=== PATIENT | female | born 1940 | race American Indian/Alaskan Native ===

== ENCOUNTER 2016-05-16 09:16 | Inpatient (IN) | payer OTHER, MEDICARE ==
--- NOTE | 2016-05-16 09:41 | C.PDOC ---
History Of Present Illness 76 yr old female presents to the ER for evaluation of pustule in right axillary area and in pubic region. Contrary to triage, patient does not have a fever. Patient denies fever, nausea, vomiting, diarrhea, dysuria, weakness or numbness. FSBS > 500 Time Seen by Provider: 05/16/16 09:37 Chief Complaint (Nursing): Fever History Per: Patient History/Exam Limitations: no limitations Onset/Duration Of Symptoms: Days Current Symptoms Are (Timing): Still Present Sick Contacts (Context): None Past Medical History Reviewed: Historical Data, Nursing Documentation, Vital Signs Vital Signs: Last Vital Signs Temp 98.4 F 05/16/16 14:00 Pulse 77 05/16/16 14:00 Resp 16 05/16/16 14:00 BP 162/70 H 05/16/16 14:00 Pulse Ox 99 05/16/16 14:37 - Medical History PMH: HTN Surgical History: No Surg Hx Family History: States: No Known Family Hx - Social History Hx Tobacco Use: No Hx Alcohol Use: No Hx Substance Use: No Review Of Systems Except As Marked, All Systems Reviewed And Found Negative. Constitutional: Negative for: Fever Gastrointestinal: Negative for: Nausea, Vomiting, Diarrhea Genitourinary: Negative for: Dysuria Skin: Positive for: Other (Pustule in right axillary area. Pustule in pubic region. ) Neurological: Negative for: Weakness, Numbness Physical Exam - Physical Exam Appears: Well, Non-toxic Skin: Warm, Dry, Other ((+) Pustules in rigth axiallary area and pubic regions, consistent with folliculitis.) Head: Atraumatic, Normacephalic Oral Mucosa: Moist Throat: Normal Chest: Symmetrical, No Tenderness Cardiovascular: Rhythm Regular, No Murmur Respiratory: Normal Breath Sounds, No Rales, No Rhonchi, No Wheezing Extremity: Normal ROM, No Swelling Neurological/Psych: Oriented x3, Normal Speech Gait: Steady ED Course And Treatment - Laboratory Results Result Diagrams: 05/16/16 11:00 05/16/16 11:00 Lab Interpretation: Abnormal ECG: Interpreted By Me ECG Rhythm: Sinus Rhythm ECG Interpretation: No Acute Changes Rate From EC O2 Sat by Pulse Oximetry: 99 Pulse Ox Interpretation: Normal - Radiology CXR: Interpreted by Me CXR Interpretation: Yes: No Acute Disease Progress Note: Treated with IVF NSS x 2 L, Insulin 5 Units IV. FSBS > 500. Treated with 5 Units regular insulin SQ Reassessment Condition: Unchanged - Physician Consult Information Physician Contacted: Que Lafleur Outcome Of Conversation: admit Disposition Discussed With : Que Lafleur Doctor Will See Patient In The: Hospital Counseled Patient/Family Regarding: Studies Performed, Diagnosis - Disposition Disposition: HOSPITALIZED Disposition Time: 11:40 Condition: STABLE - POA Present On Arrival: None - Clinical Impression Clinical Impression: Hyperglycemia, Diabetes mellitus, new onset - PA / CERTIFIED PROFESSIONAL CODER / Resident Statement MD/DO has reviewed & agrees with the documentation as recorded. - Scribe Statement The provider has reviewed the documentation as recorded by the Scribe Deborah Green All medical record entries made by the Cadyibe were at my direction and personally dictated by me. I have reviewed the chart and agree that the record accurately reflects my personal performance of the history, physical exam, medical decision making, and the department course for this patient. I have also personally directed, reviewed, and agree with the discharge instructions and disposition. Decision To Admit - Pt Status Changed To: Hospital Disposition Of: Inpatient - Admit Certification Admit to Inpatient:: After my assessment, the patient will require hospitalization for at least two midnights. This is because of the severity of symptoms shown, intensity of services needed, and/or the medical risk in this patient being treated as an outpatient. - InPatient: Physician Admission Certification:: Hyperglycemia. New onset DM - . Bed Request Type: Regular Admitting Physician: Que Lafleur Patient Diagnosis: Hyperglycemia, Diabetes mellitus, new onset
[2016-05-16] MEDS ORDERED: Sodium Chloride 0.9% 1,000 ML IV ONE ×2 (10:08→11:31)
[2016-05-16] MEDS ORDERED: Sodium Chloride 0.9% 1,000 ML ONE ×3 (10:56→17:01)
[2016-05-16 11:08] LABS: BASO # 0.1 K/uL (0.0-0.2); EOS # 0.1 K/uL (0.0-0.7); MEAN PLATELET VOLUME 9.9 fL (7.2-11.7); MONO # 0.7 K/uL (0.0-0.8); WHITE BLOOD COUNT 9.3 K/uL (4.8-10.8)
[2016-05-16 11:14] LABS: CHLORIDE 87 mmol/L (98-107)
[2016-05-16 11:15] LABS: POTASSIUM 5.6 mmol/L (3.6-5.2); SODIUM 128 mmol/L (132-148)
[2016-05-16 11:17] LABS: ALB/GLOB RATIO 0.9 (1.0-2.1); ALKALINE PHOSPHATASE 129 U/L (38-126); AST/SGOT 21 U/L (14-36); BILIRUBIN,TOTAL 0.6 mg/dL (0.2-1.3); BLOOD UREA NITROGEN 19 mg/dL (7-17); CARBON DIOXIDE 21 mmol/L (22-30); GFR AFRICAN-AMERICAN > 60; TOTAL PROTEIN 8.1 g/dL (6.3-8.3)
[2016-05-16 11:18] LABS: ALT/SGPT 18 U/L (9-52); CALCIUM 9.3 mg/dl (8.6-10.4)
[2016-05-16 11:27] LABS: BASO % 1.3 % (0.0-2.0); EOS % 1.2 % (0.0-4.0); HEMATOCRIT 34.5 % (34.0-47.0); LYMPH # 2.2 K/uL (1.0-4.3); LYMPH % 23.8 % (20.0-40.0); MEAN CORPUSCULAR HEMOGLOBIN 21.1 pg (27.0-31.0); MEAN CORPUSCULAR HGB CONC 30.5 g/dL (33.0-37.0); MONO % 7.6 % (0.0-10.0); NRBC % 0.1 % (0.0-2.0); RBC URINE 17 /hpf (0-3); RED CELL DISTRIBUTION WIDTH 21.8 % (11.5-14.5); URINE BACTERIA RARE (<OCC); URINE BILIRUBIN NEGATIVE (NEGATIVE); URINE BLOOD 1+ (NEGATIVE); URINE COLOR Straw (YELLOW); URINE GLUCOSE (UA) 3+ mg/dL (Normal); URINE KETONE TRACE mg/dL (NEGATIVE); URINE LEUKOCYTE ESTERASE 3+ Leu/uL (Negative); URINE PROTEIN NEGATIVE (NEGATIVE); URINE UROBILINOGEN NORMAL mg/dL (0.2-1.0); WBC URINE 5 /hpf (0-5)
[2016-05-16 11:30] LABS: GLUCOSE,RANDOM 858 mg/dL (65-105)
[2016-05-16] MEDS ORDERED: (Novolin R) Insulin Human Regular 100 units/ml vial IV ONE (11:30)
[2016-05-16] MEDS ORDERED: (Novolin R) Insulin Human Regular 100 units/ml vial ONE ×2 (11:48→14:12)
--- NOTE | 2016-05-16 12:30 | RAD ---
HISTORY: Cough COMPARISON: Comparison is made to the previous study dated 01/07/2011 TECHNIQUE: Chest PA and lateral FINDINGS: LUNGS: No evidence of focal infiltrate or consolidation in the lungs. PLEURA: No significant pleural effusion identified. No pneumothorax apparent. CARDIOVASCULAR: Normal. OSSEOUS STRUCTURES: No significant abnormalities. VISUALIZED UPPER ABDOMEN: Normal. OTHER FINDINGS: None. IMPRESSION: No active disease.
[2016-05-16] MEDS ORDERED: (Novolin R) Insulin Human Regular 100 units/ml vial SC ONE (13:51)
[2016-05-16] MEDS ORDERED: (Novolog) Insulin Aspart, Recombinant 100 u/ml 10 ml vial SC ONE (17:00)
[2016-05-16] MEDS ORDERED: (Novolog) Insulin Aspart, Recombinant 100 u/ml 10 ml vial ONE (17:01)
[2016-05-16] MEDS: Sodium Chloride 0.9% 1,000 ML IV SCH (17:10)
[2016-05-16] MEDS ORDERED: (Novolog) Insulin Aspart, Recombinant 100 u/ml 10 ml vial SC STA (17:13)
[2016-05-16] MEDS: Clindamycin 300 MG in Sodium Chloride 0.9% 50 ML IVPB SCH (17:32)
[2016-05-16 18:47] VITALS: RESP 20
[2016-05-16 21:36] LABS: CHLORIDE 103 mmol/L (98-107); POTASSIUM 3.7 mmol/L (3.6-5.2); SODIUM 139 mmol/L (132-148)
[2016-05-16 21:38] LABS: GFR AFRICAN-AMERICAN > 60
[2016-05-16 21:39] LABS: BLOOD UREA NITROGEN 13 mg/dL (7-17); CARBON DIOXIDE 23 mmol/L (22-30); GLUCOSE,RANDOM 279 mg/dL (65-105)
[2016-05-16 21:40] LABS: CALCIUM 9.1 mg/dl (8.6-10.4)
[2016-05-16] MEDS ORDERED: (Lantus) Insulin Glargine, Recombinant SC SCH (22:00)
[2016-05-16] MEDS: (Novolog) Insulin Aspart, Recombinant 100 u/ml 10 ml vial SC SCH (22:08)
[2016-05-17] MEDS: Clindamycin 300 MG in Sodium Chloride 0.9% 50 ML IVPB SCH ×2 (00:31→05:01)
[2016-05-17] MEDS: Sodium Chloride 0.9% 1,000 ML IV SCH (04:58)
[2016-05-17] MEDS: (Novolog) Insulin Aspart, Recombinant 100 u/ml 10 ml vial SC SCH ×4 (07:48→21:32)
[2016-05-17] MEDS ORDERED: Clindamycin 300 MG in Sodium Chloride 0.9% 50 ML IVPB SCH (12:00)
--- NOTE | 2016-05-17 12:15 | CP.PCM.CON ---
History of Present Illness - History of Present Illness History of Present Illness: 76 year old female patient was seen at bedside this morning after request for podiatry consultation concerning elongated, dystrophic toenails x10. Patient was resting comfortably in bed at the time of visit. AAO x3. Patient denies of any pain to bilateral lower extremities. Patient denies of any N/V/F/C or SOB today Past Patient History - Past Medical History & Family History Past Medical History?: Yes - Past Social History Smoking Status: Former Smoker - CARDIAC Hx Cardiac Disorders: Yes Hx Hypertension: Yes - PULMONARY Hx Respiratory Disorders: No - NEUROLOGICAL Hx Neurological Disorder: No - HEENT Hx HEENT Problems: No - RENAL Hx Chronic Kidney Disease: No - ENDOCRINE/METABOLIC Hx Endocrine Disorders: Yes Other/Comment: New onset DM - HEMATOLOGICAL/ONCOLOGICAL Hx Blood Disorders: No - INTEGUMENTARY Hx Dermatological Problems: No - MUSCULOSKELETAL/RHEUMATOLOGICAL Hx Musculoskeletal Disorders: No Hx Falls: No - GASTROINTESTINAL Hx Gastrointestinal Disorders: No - GENITOURINARY/GYNECOLOGICAL Hx Genitourinary Disorders: No - PSYCHIATRIC Hx Psychophysiologic Disorder: No Hx Substance Use: No - SURGICAL HISTORY Hx Surgeries: Yes Other/Comment: Ectopic 50 yr ago - ANESTHESIA Hx Anesthesia: Yes Hx Anesthesia Reactions: No Hx Malignant Hyperthermia: No Has any member of the family had a problem w/ anesthesia?: No Meds Allergies/Adverse Reactions: Allergies Allergy/AdvReac Type Severity Reaction Status Date / Time No Known Allergies Allergy Verified 05/16/16 09:22 - Medications Medications: Current Medications Clindamycin Phosphate 300 mg/ (Sodium Chloride) 52 mls @ 100 mls/hr IVPB Q6H [facility] Insulin Aspart (Novolog) 0 unit SC ACHS [facility] PRN Reason: Protocol Last Admin: 05/17/16 07:48 Dose: 6 unit Insulin Glargine (Lantus) 20 unit SC HS [facility] Last Admin: 05/16/16 22:07 Dose: 20 unit Losartan Potassium (Cozaar) 50 mg PO DAILY [facility] Last Admin: 05/17/16 09:50 Dose: 50 mg Metformin HCl (Glucophage) 850 mg PO TID [facility] Rosuvastatin Calcium (Crestor) 10 mg PO HS [facility] Last Admin: 05/16/16 22:07 Dose: 10 mg Physical Exam - Constitutional Appears: Well, Non-toxic, No Acute Distress - Extremities Exam Additional comments: Bilateral lower extremities exam DERM: No open wound noted. No erythema is noted. No sign of infection noted. Elongated, dystrophic, mycotic toenails noted to digits x10. VASC: Palpable DP noted bilaterally 2/4, non-palpable DP noted bilaterally. AUDIT ANALYST less than 3 seconds to all digits noted NEURO: Gross sensation intact ORTHO: No pain on palpation, no pain on passive ROM of B/L ankle, MTPJs. Manual muscle testing 5/5 bilaterally. - Neurological Exam Neurological exam: Alert, Oriented x3 - Psychiatric Exam Psychiatric exam: Normal Affect, Normal Mood - Skin Skin Exam: Normal Color, Warm Results - Vital Signs Recent Vital Signs: Last Vital Signs Temp 97.8 F 05/17/16 08:00 Pulse 89 05/17/16 08:00 Resp 20 05/17/16 08:00 BP 169/73 H 05/17/16 08:00 Pulse Ox 95 05/17/16 08:00 - Labs Result Diagrams: 05/16/16 11:00 05/16/16 21:19 Labs: Laboratory Results - last 24 hr 05/16/16 05/16/16 05/16/16 13:29 15:20 18:26 Sodium Potassium Chloride Carbon Dioxide Anion Gap BUN Creatinine Est GFR ( Amer) Est GFR (Non-Af Amer) POC Glucose (mg/dL) > 500 H* > 500 H* 326 H Random Glucose Calcium 05/16/16 05/16/16 05/17/16 21:18 21:19 07:33 Sodium 139 Potassium 3.7 Chloride 103 Carbon Dioxide 23 Anion Gap 16 BUN 13 Creatinine 0.8 Est GFR ( Amer) > 60 Est GFR (Non-Af Amer) > 60 POC Glucose (mg/dL) 298 H 419 H* Random Glucose 279 H Calcium 9.1 05/17/16 12:00 Sodium Potassium Chloride Carbon Dioxide Anion Gap BUN Creatinine Est GFR ( Amer) Est GFR (Non-Af Amer) POC Glucose (mg/dL) 474 H* Random Glucose Calcium Assessment & Plan - Assessment and Plan (Free Text) Assessment: 76 year old diabetic female patient presents with elongated, dystrophic, mycotic toenails x10 Plan: Patient was seen, evaluated and treated with all questions and concerns addressed labs and vitals reviewed discussed in detail with Dr. Sharp Elongated, dystrophic toenails were sharply cut with a large nail nipper up to level of normal length without any incident x10 Patient is stable from podiatry standpoint Podiatry signing off Please re-consult podiatry if any other lower extremity problems occur, thank you
[2016-05-17] MEDS ORDERED: (Novolog Mix 70/30) Insulin Aspart/Insulin Aspar 100 units/ml SC SCH (16:30)
[2016-05-17 19:39] LABS: HEMATOCRIT 31.7 % (34.0-47.0); MEAN CELL VOLUME 67.5 fL (81.0-99.0); MEAN CORPUSCULAR HEMOGLOBIN 20.9 pg (27.0-31.0); MEAN CORPUSCULAR HGB CONC 30.9 g/dL (33.0-37.0); MEAN PLATELET VOLUME 9.4 fL (7.2-11.7); RED CELL DISTRIBUTION WIDTH 21.6 % (11.5-14.5); WHITE BLOOD COUNT 10.4 K/uL (4.8-10.8)
[2016-05-17 19:48] LABS: CHLORIDE 98 mmol/L (98-107); POTASSIUM 4.1 mmol/L (3.6-5.2); SODIUM 133 mmol/L (132-148)
[2016-05-17 19:51] LABS: BLOOD UREA NITROGEN 15 mg/dL (7-17); CARBON DIOXIDE 20 mmol/L (22-30); GFR AFRICAN-AMERICAN > 60; GLUCOSE,RANDOM 337 mg/dL (65-105)
[2016-05-17 19:52] LABS: CALCIUM 8.6 mg/dl (8.6-10.4)
[2016-05-17] MEDS ORDERED: (Novolog) Insulin Aspart, Recombinant 100 u/ml 10 ml vial SC STA (21:43)
--- NOTE | 2016-05-17 22:56 | CP.PCM.HP ---
History of Present Illness - History of Present Illness History of Present Illness: Cheif complain: Wounds in pelvic area HPI: 76 yr old AA female with PMH of HTN ,who is non complaint with her diet, medication and follow up presents to the ER for evaluation of pustule in right axillary area and in pubic region. Contrary to triage, patient does not have a fever. Patient denies fever,chills, nausea, vomiting, diarrhea, dysuria, weakness or numbness.PT c/o gen weakness, tiredness, wt loss, polyuria, polydipsia. FSBS > 500 Present on Admission - Present on Admission Any Indicators Present on Admission: No Review of Systems - Review of Systems Systems not reviewed;Unavailable: Acuity of Condition - Constitutional Constitutional: Fatigue, Fever, Headache, Lethargy, Weight Loss, Weakness - EENT Eyes: absent: As Per HPI, Blind Spots, Blurred Vision, Change in Vision, Decreased Night Vision, Diplopia, Discharge, Dry Eye, Exophthalmos, Floaters, Irritation, Itchy Eyes, Loss of Peripheral Vision, Pain, Photophobia, Requires Corrective Lenses, Sees Flashes, Spots in Vision, Tunnel Vision, Other Visual Disturbances, Loss of Vision, Other Ears: absent: As Per HPI, Decreased Hearing, Ear Discharge, Ear Pain, Tinnitus, Abnormal Hearing, Disequilibrium, Dizziness, Other Nose/Mouth/Throat: absent: As Per HPI, Epistaxis, Nasal Congestion, Nasal Discharge, Nasal Obstruction, Nasal Trauma, Nose Pain, Post Nasal Drip, Sinus Pain, Sinus Pressure, Bleeding Gums, Change in Voice, Dental Pain, Dry Mouth, Dysphagia, Halitosis, Hoarsness, Lip Swelling, Mouth Lesions, Mouth Pain, Odynophagia, Sore Throat, Throat Swelling, Tongue Swelling, Facial Pain, Neck Pain, Neck Mass, Other - Cardiovascular Cardiovascular: absent: As Per HPI, Acrocyanosis, Chest Pain, Chest Pain at Rest , Chest Pain with Activity, Claudication, Diaphoresis, Dyspnea, Dyspnea on Exertion, Edema, Irregular Heart Rhythm, Pain Radiating to Arm/Neck/Jaw, Leg Edema, Leg Ulcers, Lightheadedness, Orthopnea, Palpitations, Paroxysmal Nocturnal Dyspnea, Pedal Edema, Radiating Pain, Rapid Heart Rate, Slow Heart Rate, Syncope, Other - Respiratory Respiratory: absent: As Per HPI, Cough, Dyspnea, Hemoptysis, Dyspnea on Exertion , Wheezing, Snoring, Stridor, Pain on Inspiration, Chest Congestion, Excessive Mucous Production, Change in Mucous Color, Pain with Coughing, Other - Genitourinary Genitourinary: Urinary Frequency. absent: As Per HPI, Change in Urinary Stream , Difficulty Urinating, Dysuria, Flank Pain, Hematuria, Pyuria, Nocturia, Urinary Incontinence, Urinary Hesitance, Urinary Urgency, Voiding Freq/Small Amts, Freq UTI, Hx Renal/Bladder Calculi, Hx /Renal Surgery, Bladder Distension, Other - Musculoskeletal Musculoskeletal: Back Pain, Muscle Weakness, Myalgias, Numbness, Tingling - Integumentary Integumentary: Changing Lesions, Dry Skin, Furuncle, Pruritus, Rash, Skin Ulcer - Neurological Neurological: absent: As Per HPI, Abnormal Gait, Abnormal Hearing, Abnormal Movements, Abnormal Speech, Behavioral Changes, Burning Sensations, Confusion, Convulsions, Disequilibrium, Dizziness, Numbness, Focal Weakness, Frequent Falls , Headaches, Lack of Coordination, Loss of Vision, Memory Loss, Paresthesias, Radicular Pain, Restless Legs, Sensory Deficit, Syncope, Tingling, Tremor, Vertigo, Weakness, Other Visual Disturbances, Other - Psychiatric Psychiatric: absent: As Per HPI, Abnormal Sleep Pattern, Anhedonia, Anxiety, Auditory Hallucinations, Behavioral Changes, Change in Appetite, Change in Libido, Confusion, Depression, Difficulty Concentrating, Hallucinations, Homicidal Ideation, Hopelessness, Irritability, Memory Loss, Mood Swings, Panic Attacks, Paranoia, Suicidal Ideation, Visual Hallucinations, Tactile Hallucinations, Other - Endocrine Endocrine: Fatigue, Polydipsia, Polyuria. absent: As Per HPI, Change in Body Appearance, Change in Libido, Cold Intolorance, Deepening of Voice, Excessive Sweating, Flushing, Heat Intolorance, Increase in Ring/Shoe/Hat Size, Palpitations, Polyphagia, Other Past Patient History - Past Medical History & Family History Past Medical History?: Yes - Past Social History Smoking Status: Former Smoker - CARDIAC Hx Cardiac Disorders: Yes Hx Hypertension: Yes - PULMONARY Hx Respiratory Disorders: No - NEUROLOGICAL Hx Neurological Disorder: No - HEENT Hx HEENT Problems: No - RENAL Hx Chronic Kidney Disease: No - ENDOCRINE/METABOLIC Hx Endocrine Disorders: Yes Other/Comment: New onset DM - HEMATOLOGICAL/ONCOLOGICAL Hx Blood Disorders: No - INTEGUMENTARY Hx Dermatological Problems: No - MUSCULOSKELETAL/RHEUMATOLOGICAL Hx Musculoskeletal Disorders: No Hx Falls: No - GASTROINTESTINAL Hx Gastrointestinal Disorders: No - GENITOURINARY/GYNECOLOGICAL Hx Genitourinary Disorders: No - PSYCHIATRIC Hx Psychophysiologic Disorder: No Hx Substance Use: No - SURGICAL HISTORY Hx Surgeries: Yes Other/Comment: Ectopic 50 yr ago - ANESTHESIA Hx Anesthesia: Yes Hx Anesthesia Reactions: No Hx Malignant Hyperthermia: No Has any member of the family had a problem w/ anesthesia?: No Meds Home Medications: Home Medication List Medication Instructions Recorded Confirmed Type Docusate [Colace] 100 mg PO BID #60 cap 05/19/16 Rx Ferrous Sulfate [Feosol] 325 mg PO BID #60 tab 05/19/16 Rx Insulin Glargine, Recombina 20 unit SC HS #5 unit 05/19/16 Rx [Lantus] Losartan [Cozaar] 50 mg PO DAILY #30 tab 05/19/16 Rx Rosuvastatin Calcium [Crestor] 10 mg PO HS #30 tab 05/19/16 Rx metFORMIN [glucOPHAGE] 850 mg PO TID #90 tab 05/19/16 Rx Allergies/Adverse Reactions: Allergies Allergy/AdvReac Type Severity Reaction Status Date / Time No Known Allergies Allergy Verified 05/16/16 09:22 Physical Exam - Constitutional Appears: No Acute Distress - Eye Exam Pupil Exam: NORMAL ACCOMODATION, PERRL - ENT Exam ENT Exam: Mucous Membranes Dry - Neck Exam Neck exam: Positive for: Normal Inspection - Respiratory Exam Respiratory Exam: Clear to Auscultation Bilateral, NORMAL BREATHING PATTERN - Cardiovascular Exam Cardiovascular Exam: REGULAR RHYTHM Additional comments: 3x 2 cm boil in right ant chest wall which is tender, warm - GI/Abdominal Exam GI & Abdominal Exam: Normal Bowel Sounds, Soft. absent: Tenderness - Neurological Exam Neurological exam: Alert, CN II-XII Intact, Normal Gait, Oriented x3, Reflexes Normal - Psychiatric Exam Psychiatric exam: Normal Affect, Normal Mood - Skin Skin Exam: Rash, Vesicles Additional comments: multiple carbuncles in pubic area with pustules Results - Vital Signs Recent Vital Signs: Last Vital Signs Temp 98.2 F 05/17/16 16:00 Pulse 90 05/17/16 16:00 Resp 20 05/17/16 16:00 BP 149/84 05/17/16 16:00 Pulse Ox 98 05/17/16 16:00 - Labs Result Diagrams: 05/18/16 07:31 05/19/16 08:18 Labs: Laboratory Results - last 24 hr 05/17/16 05/17/16 05/17/16 07:33 12:00 16:07 WBC RBC Hgb Hct MCV MCH MCHC RDW Plt Count MPV Sodium Potassium Chloride Carbon Dioxide Anion Gap BUN Creatinine Est GFR ( Amer) Est GFR (Non-Af Amer) POC Glucose (mg/dL) 419 H* 474 H* 448 H* Random Glucose Calcium 05/17/16 05/17/16 19:37 21:16 WBC 10.4 RBC 4.70 Hgb 9.8 L Hct 31.7 L MCV 67.5 L MCH 20.9 L MCHC 30.9 L RDW 21.6 H Plt Count 385 MPV 9.4 Sodium 133 Potassium 4.1 Chloride 98 Carbon Dioxide 20 L Anion Gap 19 BUN 15 Creatinine 0.9 Est GFR ( Amer) > 60 Est GFR (Non-Af Amer) > 60 POC Glucose (mg/dL) 302 H Random Glucose 337 H Calcium 8.6 Assessment & Plan (1) Hyperglycemia Status: Acute (2) Diabetes mellitus, new onset Status: Acute (3) Carbuncle Status: Acute (4) HTN (hypertension) Status: Acute (5) Dehydration Status: Acute
--- NOTE | 2016-05-17 23:40 | CP.PCM.PN ---
Subjective - Date & Time of Evaluation Date of Evaluation: 05/17/16 Time of Evaluation: 09:51 - Subjective Subjective: Pt seen & evaluated, no IV line, reamins hyperglycemic, HCO3 is up, anion gap is normal, afebrile Objective - Vital Signs/Intake and Output Vital Signs (last 24 hours): Temp Pulse Resp BP Pulse Ox 98.2 F 90 20 149/84 98 05/17/16 16:00 05/17/16 16:00 05/17/16 16:00 05/17/16 16:00 05/17/16 16:00 Intake and Output: 05/17/16 05/18/16 18:59 06:59 Intake Total 450 Balance 450 - Medications Medications: Current Medications Clindamycin HCl (Cleocin) 300 mg PO Q6 [facility] Last Admin: 05/17/16 17:30 Dose: 300 mg Insulin Aspart (Novolog) 0 unit SC ACHS [facility] PRN Reason: Protocol Last Admin: 05/17/16 21:32 Dose: 4 unit Insulin Aspart (Novolog Mix 70/30 (70/30 Units/Ml)) 15 units SC ACBD [facility] Last Admin: 05/17/16 17:30 Dose: 15 units Losartan Potassium (Cozaar) 50 mg PO DAILY [facility] Last Admin: 05/17/16 09:50 Dose: 50 mg Metformin HCl (Glucophage) 850 mg PO TID [facility] Last Admin: 05/17/16 17:30 Dose: 850 mg Rosuvastatin Calcium (Crestor) 10 mg PO HS [facility] Last Admin: 05/17/16 21:32 Dose: 10 mg - Labs Labs: 05/17/16 19:37 05/17/16 19:37 - Constitutional Appears: No Acute Distress - Head Exam Head Exam: ATRAUMATIC, NORMAL INSPECTION, NORMOCEPHALIC - Eye Exam Eye Exam: EOMI, Normal appearance, PERRL Pupil Exam: NORMAL ACCOMODATION, PERRL - ENT Exam ENT Exam: Mucous Membranes Moist, Normal Exam - Respiratory Exam Respiratory Exam: Clear to Ausculation Bilateral, Wheezes - Cardiovascular Exam Cardiovascular Exam: REGULAR RHYTHM, +S1, +S2. absent: Murmur - GI/Abdominal Exam GI & Abdominal Exam: Soft, Normal Bowel Sounds. absent: Tenderness - Neurological Exam Neurological Exam: Alert, Awake, CN II-XII Intact, Normal Gait, Oriented x3 - Psychiatric Exam Psychiatric exam: Normal Affect, Normal Mood Assessment and Plan (1) Hyperglycemia Status: Acute (2) Diabetes mellitus, new onset Status: Acute (3) Carbuncle Status: Acute (4) HTN (hypertension) Status: Acute (5) Dehydration Status: Acute
[2016-05-18 07:46] LABS: HEMATOCRIT 31.7 % (34.0-47.0); MEAN CELL VOLUME 68.1 fL (81.0-99.0); MEAN CORPUSCULAR HEMOGLOBIN 20.9 pg (27.0-31.0); MEAN CORPUSCULAR HGB CONC 30.7 g/dL (33.0-37.0); MEAN PLATELET VOLUME 9.4 fL (7.2-11.7); RED CELL DISTRIBUTION WIDTH 21.8 % (11.5-14.5); WHITE BLOOD COUNT 7.8 K/uL (4.8-10.8)
[2016-05-18 07:54] LABS: CHLORIDE 99 mmol/L (98-107); POTASSIUM 3.9 mmol/L (3.6-5.2); SODIUM 133 mmol/L (132-148)
[2016-05-18 07:57] LABS: BLOOD UREA NITROGEN 13 mg/dL (7-17); CARBON DIOXIDE 21 mmol/L (22-30); GFR AFRICAN-AMERICAN > 60
[2016-05-18 07:58] LABS: CALCIUM 8.4 mg/dl (8.6-10.4); GLUCOSE,RANDOM 266 mg/dL (65-105)
[2016-05-18] MEDS: (Novolog Mix 70/30) Insulin Aspart/Insulin Aspar 100 units/ml SC SCH ×2 (08:38→16:34)
[2016-05-18] MEDS: (Novolog) Insulin Aspart, Recombinant 100 u/ml 10 ml vial SC SCH ×4 (08:41→21:49)
--- NOTE | 2016-05-18 23:54 | CP.PCM.PN ---
Subjective - Date & Time of Evaluation Date of Evaluation: 05/18/16 Time of Evaluation: 10:06 - Subjective Subjective: Pt is seen & examined, is improving, blood sugar is down, on antibiotics for celulitis and discharge from suprapubic area Objective - Vital Signs/Intake and Output Vital Signs (last 24 hours): Temp Pulse Resp BP Pulse Ox 97.6 F 89 20 154/92 H 96 05/18/16 16:33 05/18/16 16:33 05/18/16 16:33 05/18/16 16:33 05/18/16 16:33 Intake and Output: 05/18/16 05/19/16 18:59 06:59 Intake Total 500 Balance 500 - Medications Medications: Current Medications Clindamycin HCl (Cleocin) 300 mg PO Q6 [facility] Last Admin: 05/18/16 18:16 Dose: 300 mg Heparin Sodium (Porcine) (Heparin) 5,000 units SC Q12 [facility] Last Admin: 05/18/16 21:29 Dose: 5,000 units Insulin Aspart (Novolog Mix 70/30 (70/30 Units/Ml)) 20 units SC ACBD [facility] Last Admin: 05/18/16 16:34 Dose: 20 units Insulin Aspart (Novolog) 0 unit SC ACHS [facility] PRN Reason: Protocol Last Admin: 05/18/16 21:49 Dose: Not Given Losartan Potassium (Cozaar) 50 mg PO DAILY [facility] Last Admin: 05/18/16 10:45 Dose: 50 mg Metformin HCl (Glucophage) 850 mg PO TID [facility] Last Admin: 05/18/16 18:17 Dose: 850 mg Rosuvastatin Calcium (Crestor) 10 mg PO HS [facility] Last Admin: 05/18/16 21:28 Dose: 10 mg - Labs Labs: 05/18/16 07:31 05/18/16 07:31 - Constitutional Appears: No Acute Distress - Head Exam Head Exam: ATRAUMATIC, NORMAL INSPECTION, NORMOCEPHALIC - Eye Exam Eye Exam: EOMI, Normal appearance, PERRL Pupil Exam: NORMAL ACCOMODATION, PERRL - ENT Exam ENT Exam: Mucous Membranes Moist, Normal Exam - Respiratory Exam Respiratory Exam: Clear to Ausculation Bilateral, NORMAL BREATHING PATTERN - Cardiovascular Exam Cardiovascular Exam: REGULAR RHYTHM, +S1, +S2. absent: Murmur - GI/Abdominal Exam GI & Abdominal Exam: Soft, Normal Bowel Sounds. absent: Tenderness - Neurological Exam Neurological Exam: Alert, Awake, CN II-XII Intact, Normal Gait, Oriented x3 - Skin Skin Exam: Erythema, Rash, Vesicles Assessment and Plan (1) Hyperglycemia Status: Acute (2) Diabetes mellitus, new onset Status: Acute (3) Carbuncle Status: Acute (4) HTN (hypertension) Status: Acute (5) Dehydration Status: Acute
[2016-05-19] MEDS: (Novolog Mix 70/30) Insulin Aspart/Insulin Aspar 100 units/ml SC SCH ×2 (08:00→17:15)
[2016-05-19] MEDS: (Novolog) Insulin Aspart, Recombinant 100 u/ml 10 ml vial SC SCH ×4 (08:00→21:21)
[2016-05-19 08:43] LABS: CHLORIDE 97 mmol/L (98-107); POTASSIUM 4.4 mmol/L (3.6-5.2); SODIUM 133 mmol/L (132-148)
[2016-05-19 08:46] LABS: CARBON DIOXIDE 23 mmol/L (22-30); GFR AFRICAN-AMERICAN > 60
[2016-05-19 08:47] LABS: BLOOD UREA NITROGEN 14 mg/dL (7-17); CALCIUM 8.5 mg/dl (8.6-10.4); GLUCOSE,RANDOM 302 mg/dL (65-105)
[2016-05-20 00:24] VITALS: O2SAT 97
--- NOTE | 2016-05-20 01:21 | CP.PCM.PN ---
Subjective - Date & Time of Evaluation Date of Evaluation: 05/19/16 Time of Evaluation: 10:10 - Subjective Subjective: Pt seen and evaluated is imrpoving, blood sugars are much steadier now, she has been taught ACCU check Objective - Vital Signs/Intake and Output Vital Signs (last 24 hours): Temp Pulse Resp BP Pulse Ox 98 F 76 20 159/84 H 97 05/20/16 00:18 05/20/16 00:18 05/20/16 00:18 05/20/16 00:18 05/20/16 00:18 Intake and Output: 05/19/16 05/20/16 18:59 06:59 Intake Total 480 Balance 480 - Medications Medications: Current Medications Clindamycin HCl (Cleocin) 300 mg PO Q6 [facility] Last Admin: 05/20/16 00:24 Dose: 300 mg Ferrous Sulfate (Feosol) 325 mg PO TID [facility] Heparin Sodium (Porcine) (Heparin) 5,000 units SC Q12 [facility] Last Admin: 05/19/16 21:20 Dose: 5,000 units Insulin Aspart (Novolog Mix 70/30 (70/30 Units/Ml)) 20 units SC ACBD [facility] Last Admin: 05/19/16 17:15 Dose: 20 units Insulin Aspart (Novolog) 0 unit SC ACHS [facility] PRN Reason: Protocol Last Admin: 05/19/16 21:21 Dose: Not Given Losartan Potassium (Cozaar) 50 mg PO DAILY [facility] Last Admin: 05/19/16 11:03 Dose: 50 mg Metformin HCl (Glucophage) 850 mg PO TID [facility] Last Admin: 05/19/16 17:14 Dose: 850 mg Rosuvastatin Calcium (Crestor) 10 mg PO HS [facility] Last Admin: 05/19/16 21:19 Dose: 10 mg - Labs Labs: 05/18/16 07:31 05/19/16 08:18 - Constitutional Appears: No Acute Distress - Head Exam Head Exam: ATRAUMATIC, NORMAL INSPECTION, NORMOCEPHALIC - Eye Exam Eye Exam: EOMI, Normal appearance, PERRL Pupil Exam: NORMAL ACCOMODATION, PERRL - ENT Exam ENT Exam: Mucous Membranes Moist, Normal Exam - Neck Exam Neck Exam: Full ROM, Normal Inspection. absent: Lymphadenopathy - Respiratory Exam Respiratory Exam: Clear to Ausculation Bilateral, NORMAL BREATHING PATTERN - Cardiovascular Exam Cardiovascular Exam: REGULAR RHYTHM, +S1, +S2. absent: Murmur Assessment and Plan (1) Hyperglycemia Status: Acute (2) Diabetes mellitus, new onset Status: Acute (3) Carbuncle Status: Acute (4) HTN (hypertension) Status: Acute (5) Dehydration Status: Acute
[2016-05-20] MEDS: (Novolog) Insulin Aspart, Recombinant 100 u/ml 10 ml vial SC SCH ×2 (07:30→14:21)
[2016-05-20] MEDS: (Novolog Mix 70/30) Insulin Aspart/Insulin Aspar 100 units/ml SC SCH (08:00)
[2016-05-20 08:47] VITALS: BP 135/81; PULSE 78; TEMP 98.1
--- NOTE | 2016-05-20 14:57 | CP.PCM.PN ---
Subjective - Date & Time of Evaluation Date of Evaluation: 05/20/16 Time of Evaluation: 11:30 - Subjective Subjective: Pt seen an d examined today, states feels better, denies any complaints BS - stable Objective - Vital Signs/Intake and Output Vital Signs (last 24 hours): Temp Pulse Resp BP Pulse Ox 98.1 F 78 20 135/81 97 05/20/16 08:00 05/20/16 08:00 05/20/16 08:00 05/20/16 08:00 05/20/16 08:00 Intake and Output: 05/20/16 05/20/16 06:59 18:59 Intake Total 500 Balance 500 - Medications Medications: Current Medications Clindamycin HCl (Cleocin) 300 mg PO Q6 [facility] Last Admin: 05/20/16 11:06 Dose: 300 mg Ferrous Sulfate (Feosol) 325 mg PO TID [facility] Last Admin: 05/20/16 14:21 Dose: 325 mg Heparin Sodium (Porcine) (Heparin) 5,000 units SC Q12 [facility] Last Admin: 05/20/16 10:55 Dose: 5,000 units Insulin Aspart (Novolog Mix 70/30 (70/30 Units/Ml)) 20 units SC ACBD [facility] Last Admin: 05/20/16 08:00 Dose: 20 units Insulin Aspart (Novolog) 0 unit SC ACHS [facility] PRN Reason: Protocol Last Admin: 05/20/16 14:21 Dose: 3 unit Losartan Potassium (Cozaar) 50 mg PO DAILY [facility] Last Admin: 05/20/16 10:56 Dose: 50 mg Metformin HCl (Glucophage) 850 mg PO TID [facility] Last Admin: 05/20/16 14:21 Dose: 850 mg Rosuvastatin Calcium (Crestor) 10 mg PO HS [facility] Last Admin: 05/19/16 21:19 Dose: 10 mg - Labs Labs: 05/18/16 07:31 05/19/16 08:18 Assessment and Plan - Assessment and Plan (Free Text) Assessment: A/P 76 yr old female admitted for hyperglycemia- new onset of DM / hypertension Bs- controlled with current regimen Pt has been taught how to administer insulin at home D/W Dr. Lafleur, stable for discharge home today and f/u with Dr. Lafleur office in 1 week Discharge instruction discussed with patient , including medications and f/u visit , who understands an d agrees with plan Pt instructed to returns to ED if symptoms get worse or any concerning new symptoms develops
--- NOTE | 2016-05-21 00:20 | CP.PCM.DIS ---
Provider - Provider Date of Admission: 05/16/16 11:34 Attending physician: Que Lafleur MD Time Spent in preparation of Discharge (in minutes): 30 Diagnosis - Discharge Diagnosis (1) Hyperglycemia Status: Acute (2) Diabetes mellitus, new onset Status: Acute (3) Carbuncle Status: Acute (4) HTN (hypertension) Status: Acute (5) Dehydration Status: Acute Hospital Course - Lab Results Lab Results: Most Recent Lab Values WBC 7.8 K/uL (4.8-10.8) 05/18/16 07:31 RBC 4.66 Mil/uL (3.80-5.20) 05/18/16 07:31 Hgb 9.7 g/dL (11.0-16.0) L 05/18/16 07:31 Hct 31.7 % (34.0-47.0) L 05/18/16 07:31 MCV 68.1 fL (81.0-99.0) L 05/18/16 07:31 MCH 20.9 pg (27.0-31.0) L 05/18/16 07:31 MCHC 30.7 g/dL (33.0-37.0) L 05/18/16 07:31 RDW 21.8 % (11.5-14.5) H 05/18/16 07:31 Plt Count 345 K/uL (130-400) 05/18/16 07:31 MPV 9.4 fL (7.2-11.7) 05/18/16 07:31 Neut % (Auto) 66.1 % (50.0-75.0) 05/16/16 11:00 Lymph % (Auto) 23.8 % (20.0-40.0) 05/16/16 11:00 [place] % (Auto) 7.6 % (0.0-10.0) 05/16/16 11:00 Eos % (Auto) 1.2 % (0.0-4.0) 05/16/16 11:00 Baso % (Auto) 1.3 % (0.0-2.0) 05/16/16 11:00 Neut # 6.2 K/uL (1.8-7.0) 05/16/16 11:00 Lymph # 2.2 K/uL (1.0-4.3) 05/16/16 11:00 [place] # 0.7 K/uL (0.0-0.8) 05/16/16 11:00 Eos # 0.1 K/uL (0.0-0.7) 05/16/16 11:00 Baso # 0.1 K/uL (0.0-0.2) 05/16/16 11:00 Differential Comment 05/18/16 07:31 Sodium 133 mmol/L (132-148) 05/19/16 08:18 Potassium 4.4 mmol/L (3.6-5.2) 05/19/16 08:18 Chloride 97 mmol/L (98-107) L 05/19/16 08:18 Carbon Dioxide 23 mmol/L (22-30) 05/19/16 08:18 Anion Gap 18 (10-20) 05/19/16 08:18 BUN 14 mg/dL (7-17) 05/19/16 08:18 Creatinine 0.8 MG/DL (0.7-1.2) 05/19/16 08:18 Est GFR ( Amer) > 60 05/19/16 08:18 Est GFR (Non-Af Amer) > 60 05/19/16 08:18 POC Glucose (mg/dL) 247 mg/dL (65-110) H 05/20/16 11:29 Random Glucose 302 mg/dL (65-105) H 05/19/16 08:18 Hemoglobin A1c 16.5 % (4.2-6.5) H 05/19/16 08:18 Calcium 8.5 mg/dl (8.6-10.4) L 05/19/16 08:18 Total Bilirubin 0.6 mg/dL (0.2-1.3) 05/16/16 11:00 AST 21 U/L (14-36) 05/16/16 11:00 ALT 18 U/L (9-52) 05/16/16 11:00 Alkaline Phosphatase 129 U/L (38-126) H 05/16/16 11:00 Total Protein 8.1 g/dL (6.3-8.3) 05/16/16 11:00 Albumin 3.8 g/dL (3.5-5.0) 05/16/16 11:00 Globulin 4.3 gm/dL (2.2-3.9) H 05/16/16 11:00 Albumin/Globulin Ratio 0.9 (1.0-2.1) L 05/16/16 11:00 Lipase 351 U/L (23-300) H 05/16/16 11:00 Urine Color Straw (YELLOW) 05/16/16 11:00 Urine Clarity Hazy (Clear) 05/16/16 11:00 Urine pH 5.0 (5.0-8.0) 05/16/16 11:00 Ur Specific [place] 1.025 (1.003-1.030) 05/16/16 11:00 Urine Protein Negative mg/dL (NEGATIVE) 05/16/16 11:00 Urine Glucose (UA) 3+ mg/dL (Normal) H 05/16/16 11:00 Urine Ketones Trace mg/dL (NEGATIVE) 05/16/16 11:00 Urine Blood 1+ (NEGATIVE) H 05/16/16 11:00 Urine Nitrate Negative (NEGATIVE) 05/16/16 11:00 Urine Bilirubin Negative (NEGATIVE) 05/16/16 11:00 Urine Urobilinogen Normal mg/dL (0.2-1.0) 05/16/16 11:00 Ur Leukocyte Esterase 3+ Evon/uL (Negative) H 05/16/16 11:00 Urine WBC (Auto) 5 /hpf (0-5) 05/16/16 11:00 Urine RBC (Auto) 17 /hpf (0-3) H 05/16/16 11:00 Ur Squamous Epith Cells < 1 /hpf (0-5) 05/16/16 11:00 Urine Bacteria Rare (<OCC) 05/16/16 11:00 Urine Yeast (Budding) Few /hpf (NEGATIVE) H 05/16/16 11:00 Serum Ketones Trace (NEGATIVE) 05/16/16 11:00 - Hospital Course Hospital Course: Pt seen and evaluated, is ready for discharge , states feels better, denies any complaints BS - stable Discharge Exam - Head Exam Head Exam: ATRAUMATIC, NORMAL INSPECTION, NORMOCEPHALIC - Eye Exam Eye Exam: EOMI, Normal appearance, PERRL Pupil Exam: NORMAL ACCOMODATION, PERRL - ENT Exam ENT Exam: Mucous Membranes Moist - Respiratory Exam Respiratory Exam: Clear to PA & Lateral, NORMAL BREATHING PATTERN - Cardiovascular Exam Cardiovascular Exam: REGULAR RHYTHM, +S1, +S2 - GI/Abdominal Exam GI & Abdominal Exam: Normal Bowel Sounds - Rectal Exam Rectal Exam: Deferred Discharge Plan - Discharge Medications Prescriptions: Docusate [Colace] 100 mg PO BID #60 cap Losartan [Cozaar] 50 mg PO DAILY #30 tab Rosuvastatin Calcium [Crestor] 10 mg PO HS #30 tab Ferrous Sulfate [Feosol] 325 mg PO BID #60 tab Insulin Glargine, Recombina [Lantus] 20 unit SC HS #5 unit metFORMIN [glucOPHAGE] 850 mg PO TID #90 tab - Follow Up Plan Condition: STABLE Disposition: HOME/ ROUTINE Instructions: Iron Supplements (By mouth), Laxative, Stool Softeners (By mouth) , Losartan (By mouth), Metformin (By mouth), Rosuvastatin (By mouth), Insulin Glargine (By injection), How to Check Your Blood Sugar (DC), How to Check Your Blood Sugar (GEN), Diabetic Foot Care (DC), Diabetes Mellitus Type 2 in Adults ( DC), Diabetes Mellitus Type 2 in Adults (GEN), Meal Planning with Diabetes Exchanges (DC), Diabetic Hyperglycemia (DC), Diabetes and Your Skin (DC), Diabetes and Your Skin (GEN) Referrals: Que Lafleur MD [Staff Provider] -
--- NOTE | 2016-05-21 13:19 | CARD ---
APPROVED REPORT EKG Measurement Heart [id number] ME 148P [id number] <Conclusion> Normal sinus rhythm Right axis deviation Nonspecific ST and T wave abnormality Abnormal ECG
== END 2016-05-20 15:45 | disposition home or self-care (01) | DRG 639 ==
LOC: C.ER 09:16 → C.9E 11:34 → C.6T 14:43 → C.3T 19:05
PROVIDERS: ADMIT Internal Medicine; ATTEND Internal Medicine
DX: E11.65 Type 2 diabetes mellitus with hyperglycemia (principal); E86.0 Dehydration; I10 Essential (primary) hypertension; B35.1 Tinea unguium; L60.3 Nail dystrophy; L73.8 Other specified follicular disorders; L02.431 Carbuncle of right axilla; Z91.14 Patient's other noncompliance with medication regimen; Z91.11 Patient's noncompliance with dietary regimen; Z91.19 Patient's noncompliance with other medical treatment and regimen; Z87.891 Personal history of nicotine dependence